=== PATIENT | female | born 1995 | race Caucasian/White ===

== ENCOUNTER 2018-11-14 16:33 | Inpatient (IN) ==
[2018-11-14 17:45] LABS: Basophils # (auto) 0.01 K/uL (0-0.2); Basophils % (auto) 0.1 %; Eosinophils # (auto) 0.05 K/uL (0-0.5); Eosinophils % (auto) 0.6 %; Hematocrit (blood only) 42.8 % (37-47); Hemoglobin 14.9 g/dL (12.0-16.0); Immature Granulocytes # (auto) 0.01 K/uL (0.00-0.02); Immature Granulocytes % (auto) 0.1 %; Lymphocytes # (auto) 1.89 K/uL (1.2-3.4); Mean Corpuscular Hgb Conc 34.8 g/dL (32-36); Mean Corpuscular Volume 92.4 fL (80-100); Monocytes # (auto) 0.63 K/uL (0.11-0.59); Neutrophils # (auto) 5.27 K/uL (1.4-6.5); Neutrophils % (auto) 67.2 %; Platelet Count 305 K/uL (130-400); RDW Coefficient of Variation 12.5 % (11.5-14.5); RDW Standard Deviation 42.2 fL (36.4-46.3); Red Blood Count 4.63 M/uL (4.2-5.4); White Blood Count 7.86 K/uL (4.8-10.8)
[2018-11-14 18:02] LABS: Albumin Level 4.3 gm/dl (3.4-5.0); BUN Creatinine Ratio 12.3 (10-20); Calcium 9.5 mg/dl (8.5-10.1); Creatinine Clr Calc Pharmacy 71.2 ml/min; Est GFR (African American) 87.1; Est GFR (Non-African American) 75.1
[2018-11-14 18:13] LABS: Bilirubin,Total 1.1 mg/dl (0.2-1); Globulin 4.4 gm/dl (2.5-4.0); Total Protein 8.7 gm/dl (6.4-8.2)
[2018-11-14 18:20] LABS: Acetaminophen < 2 ug/ml (10-30); Salicylate < 1.7 mg/dl (2.8-20)
[2018-11-14 18:46] LABS: Appearance Urine Clear (Clear); Blood Urine Negative (Negative); Color Urine Dark Yellow; Glucose Urine UA Negative (Negative); Ketones Urine 2+ (Negative); Leukocyte Esterase Urine Negative (Negative); Nitrite Urine Negative (Negative); Protein Urine Negative (Negative); Urobilinogen Urine Negative (Negative)
[2018-11-14 18:56] LABS: Bilirubin Urine Negative (Negative); Ictotest Urine Negative (Negative)
[2018-11-14 19:15] LABS: Amphetamines+Metham, Urine Neg (Neg); Barbiturates, Urine Neg (Neg); Benzodiazepine, Urine Neg (Neg); Cocaine, Urine Neg (Neg); MDMA (Ecstacy), Urine Neg (Neg); Methadone, Urine Neg (Neg); Opiate, Urine Neg (Neg); Phencyclidine, Urine Neg (Neg)
--- NOTE | 2018-11-14 20:49 | Emergency Department Note ---
Entered by Arsenio Harris acting as a scribe for Kings Mars MD History of Present Illness General Chief complaint: Mental Health Evaluation Stated complaint: MHID Source: patient and RN notes reviewed History of Present Illness Onset (ago): hour(s) (prior to arrival) Location: upper extremity (left wrist) Pain Consistency: + other (episode ) Quality: + other (suicidal ideation ) Associated symptoms: + other (+stress; +feeling guilty; +lightheadedness) The patient is a 23 year old female who presents to the Emergency Room after being brought in by police who were referred to her by a national suicide hotline, per the case checker. According to the case checker, police were informed that she planned to slit her throat. The case checker notes that the patient cut her wrist today, and the case checker also notes that the patient has been stressed recently due to moving here recently and for feeling guilty of cheating on her boyfriend. The patient states she has a history of depression and anxiety since she was 6 years old, and that she has been seeing a counselor off an on since 2006. The patient reports she attempted to hurt herself in May but never "went through with it" like today. She stated she thought her sharp fingernails into her arm in May but did not actually cut herself like she did today. The patient says "she feels trapped". She states that many things have spiraled out of control. She said she is struggling living alone and with moving here recently. She notes that her sister will not talk to her, and her entire family is in [place]. The patient also notes that her boyfriend and his family live in [place]. She feels guilty that she cheated on her boyfriend recently. The patient reports that she does not want to hurt herself at the moment. She denies drinking alcohol, using drugs, or any chance of . The patient notes her tetanus is up to date. The patient also reports of feeling lightheaded due to not eating anything today. She otherwise denies any other physical complaints. Home Medications Home Medications Medication Instructions Recorded Confirmed Type Stress Defy 1 tab PO DAILY 11/14/18 11/14/18 History acetaminophen [Tylenol Extra 500 mg PO DIRECTED PRN 11/14/18 11/14/18 History Strength] cetirizine [Zyrtec] 10 mg PO DAILY PRN 11/14/18 11/14/18 History etonogestrel-ethinyl estradiol 0 vag ring VAGINAL CONTINOUS 11/14/18 11/14/18 History [NuvaRing] fluticasone propionate [Flonase 1 spray INTRANASAL DAILY 11/14/18 11/14/18 History Allergy Relief] multivitamin 1 tab PO DAILY 11/14/18 11/14/18 History Allergies Allergy/AdvReac Type Severity Reaction Status Date / Time cephalexin [From Keflex] Allergy Intermediate CONFUSION, Verified 11/14/18 19:00 NAUSEA, DIZZINESS grass pollen Allergy Intermediate ITCHY Verified 11/14/18 19:00 EYES, SNEEZING, CONGESTION pollen extracts Allergy Intermediate ITCHY Verified 11/14/18 19:00 EYES, SNEEZING, CONGESTION ragweed pollen Allergy Intermediate ITCHY Verified 11/14/18 19:00 EYES, SNEEZING, CONGESTION Past Med/Surg History Medical History Anxiety Depression Family History Other No significant family history Social History Feels Safe at Home: Hesitant to Answer Smoking Status: Never smoker Review of Systems See HPI for pertinent positives & negatives. and A total of 10 systems reviewed and were otherwise negative Physical Exam Vital Signs Vital Signs - 24 hr 11/14/18 16:43 11/14/18 16:51 11/14/18 18:38 Temperature 36.9 C 36.9 C Temperature Source Oral Oral Sepsis Recent Fever Within 48 Hours No Sepsis Action Taken by Nursing No Action Required Pulse Rate 76 76 Pulse Rate [Finger] 71 Respiratory Rate 17 16 16 Blood Pressure 107/57 L 107/59 L Blood Pressure [Left Arm] 110/68 Blood Pressure Mean 73 75 Blood Pressure Mean [Left Arm] 82 Pulse Oximetry 99 99 99 Oxygen Delivery Method Room Air Room Air Room Air Constitutional: Vital signs reviewed. Eyes: Pupils are equal round reactive to light. Conjunctiva are noninjected. ENT: Pharynx is clear without erythema or exudate. Mucous membranes are moist. Neck supple without meningeal signs. Respiratory: Clear to auscultation bilaterally. Breath sounds are equal bilaterally. Cardiovascular: Regular rate and rhythm. No rubs or gallops. GI: Soft, nondistended and nontender. Bowel sounds are present. Musculoskeletal: Very superficial lacerations to volar aspect of left wrist. No bleeding or signs of infection. Integumentary: As above. Neurological: The patient is awake and alert. No focal deficits. Psychiatric: Depressed affect, anxious, not tearful. Course 1700: Past medical records reviewed. The patient was evaluated in room A7. A complete history and physical exam was performed. 1943: The patient is medically cleared. Mental health will further evaluate the patient. Administered Medications Medical Decision Making Differential Diagnosis Differential diagnoses include mood disorder, suicidal ideation, suicide attempt, overdose, drug or alcohol abuse, amongst others. Medical Records Attestation: I reviewed the patient's medical records. I did perform a limited focused review of portions of the patient's old chart on the electronic medical record. The patient has had no recent pertinent visits to this hospital. Home Medications Current Medication List: was personally reviewed by me Laboratory Data Attestation: I reviewed the patient's lab results. Result diagrams: 11/14/18 17:34 11/14/18 17:34 Lab Results 11/14/18 11/14/18 11/14/18 Range/Units 17:34 17:34 17:34 WBC 7.86 (4.8-10.8) K/uL RBC 4.63 (4.2-5.4) M/uL Hgb 14.9 (12.0-16.0) g/dL Hct 42.8 (37-47) % MCV 92.4 (80-100) fL MCH 32.2 (25-34) pg MCHC 34.8 (32-36) g/dL RDW Std Deviation 42.2 (36.4-46.3) fL RDW Coeff of Onel 12.5 (11.5-14.5) % Plt Count 305 (130-400) K/uL MPV 9.0 (7.4-10.4) fL Immature Gran % (Auto) 0.1 % Neut % (Auto) 67.2 % Lymph % (Auto) 24.0 % Boundary % (Auto) 8.0 % Eos % (Auto) 0.6 % Baso % (Auto) 0.1 % Immature Gran # (Auto) 0.01 (0.00-0.02) K/uL Neut # (Auto) 5.27 (1.4-6.5) K/uL Lymph # (Auto) 1.89 (1.2-3.4) K/uL Boundary # (Auto) 0.63 H (0.11-0.59) K/uL Eos # (Auto) 0.05 (0-0.5) K/uL Baso # (Auto) 0.01 (0-0.2) K/uL Sodium 138 (136-145) mmol/L Potassium 4.0 (3.5-5.1) mmol/L Chloride 106 (98-107) mmol/L Carbon Dioxide 25 (21-32) mmol/L Anion Gap 7.0 (3-11) BUN 13 (7-18) mg/dl Creatinine 1.04 (0.6-1.2) mg/dl Est Cr Clr Drug Dosing 71.2 ml/min Est GFR ( Amer) 87.1 Est GFR (Non-Af Amer) 75.1 BUN/Creatinine Ratio 12.3 (10-20) Glucose 85 (70-99) mg/dl Calcium 9.5 (8.5-10.1) mg/dl Total Bilirubin 1.1 H (0.2-1) mg/dl AST 21 (15-37) U/L ALT 23 (12-78) U/L Alkaline Phosphatase 82 (45-117) U/L Total Protein 8.7 H (6.4-8.2) gm/dl Albumin 4.3 (3.4-5.0) gm/dl Globulin 4.4 H (2.5-4.0) gm/dl Albumin/Globulin Ratio 1.0 (0.9-2) TSH 1.840 (0.300-4.500) uIu/ml Urine Color Urine Appearance (Clear) Urine pH (4.5-7.5) Ur Specific Monette (1.000-1.030) Urine Protein (Negative) Urine Glucose (UA) (Negative) Urine Ketones (Negative) Urine Blood (Negative) Urine Nitrite (Negative) Urine Bilirubin (Negative) Urine Urobilinogen (Negative) Ur Leukocyte Esterase (Negative) POC Ur Test (NEG) Salicylates < 1.7 L (2.8-20) mg/dl Urine Opiates Screen (Neg) Ur Methadone, Qual (Neg) Acetaminophen < 2 L (10-30) ug/ml Urine Barbiturates (Neg) Ur Phencyclidine (PCP) (Neg) U Amphetamin/Meth Scrn (Neg) MDMA (Ecstasy) Screen (Neg) U Benzodiazepines Scrn (Neg) Ur Cocaine Metabolite (Neg) U Marijuana (THC) Screen (Neg) Ethyl Alcohol mg/dL (0-3) mg/dl 11/14/18 11/14/18 11/14/18 Range/Units 17:34 18:15 18:15 WBC (4.8-10.8) K/uL RBC (4.2-5.4) M/uL Hgb (12.0-16.0) g/dL Hct (37-47) % MCV (80-100) fL MCH (25-34) pg MCHC (32-36) g/dL RDW Std Deviation (36.4-46.3) fL RDW Coeff of Onel (11.5-14.5) % Plt Count (130-400) K/uL MPV (7.4-10.4) fL Immature Gran % (Auto) % Neut % (Auto) % Lymph % (Auto) % Boundary % (Auto) % Eos % (Auto) % Baso % (Auto) % Immature Gran # (Auto) (0.00-0.02) K/uL Neut # (Auto) (1.4-6.5) K/uL Lymph # (Auto) (1.2-3.4) K/uL Boundary # (Auto) (0.11-0.59) K/uL Eos # (Auto) (0-0.5) K/uL Baso # (Auto) (0-0.2) K/uL Sodium (136-145) mmol/L Potassium (3.5-5.1) mmol/L Chloride (98-107) mmol/L Carbon Dioxide (21-32) mmol/L Anion Gap (3-11) BUN (7-18) mg/dl Creatinine (0.6-1.2) mg/dl Est Cr Clr Drug Dosing ml/min Est GFR ( Amer) Est GFR (Non-Af Amer) BUN/Creatinine Ratio (10-20) Glucose (70-99) mg/dl Calcium (8.5-10.1) mg/dl Total Bilirubin (0.2-1) mg/dl AST (15-37) U/L ALT (12-78) U/L Alkaline Phosphatase (45-117) U/L Total Protein (6.4-8.2) gm/dl Albumin (3.4-5.0) gm/dl Globulin (2.5-4.0) gm/dl Albumin/Globulin Ratio (0.9-2) TSH (0.300-4.500) uIu/ml Urine Color Urine Appearance (Clear) Urine pH (4.5-7.5) Ur Specific Monette (1.000-1.030) Urine Protein (Negative) Urine Glucose (UA) (Negative) Urine Ketones (Negative) Urine Blood (Negative) Urine Nitrite (Negative) Urine Bilirubin (Negative) Urine Urobilinogen (Negative) Ur Leukocyte Esterase (Negative) POC Ur Test NEG (NEG) Salicylates (2.8-20) mg/dl Urine Opiates Screen Neg (Neg) Ur Methadone, Qual Neg (Neg) Acetaminophen (10-30) ug/ml Urine Barbiturates Neg (Neg) Ur Phencyclidine (PCP) Neg (Neg) U Amphetamin/Meth Scrn Neg (Neg) MDMA (Ecstasy) Screen Neg (Neg) U Benzodiazepines Scrn Neg (Neg) Ur Cocaine Metabolite Neg (Neg) U Marijuana (THC) Screen Neg (Neg) Ethyl Alcohol mg/dL < 3.0 (0-3) mg/dl 11/14/18 Range/Units 18:15 WBC (4.8-10.8) K/uL RBC (4.2-5.4) M/uL Hgb (12.0-16.0) g/dL Hct (37-47) % MCV (80-100) fL MCH (25-34) pg MCHC (32-36) g/dL RDW Std Deviation (36.4-46.3) fL RDW Coeff of Onel (11.5-14.5) % Plt Count (130-400) K/uL MPV (7.4-10.4) fL Immature Gran % (Auto) % Neut % (Auto) % Lymph % (Auto) % Boundary % (Auto) % Eos % (Auto) % Baso % (Auto) % Immature Gran # (Auto) (0.00-0.02) K/uL Neut # (Auto) (1.4-6.5) K/uL Lymph # (Auto) (1.2-3.4) K/uL Boundary # (Auto) (0.11-0.59) K/uL Eos # (Auto) (0-0.5) K/uL Baso # (Auto) (0-0.2) K/uL Sodium (136-145) mmol/L Potassium (3.5-5.1) mmol/L Chloride (98-107) mmol/L Carbon Dioxide (21-32) mmol/L Anion Gap (3-11) BUN (7-18) mg/dl Creatinine (0.6-1.2) mg/dl Est Cr Clr Drug Dosing ml/min Est GFR ( Amer) Est GFR (Non-Af Amer) BUN/Creatinine Ratio (10-20) Glucose (70-99) mg/dl Calcium (8.5-10.1) mg/dl Total Bilirubin (0.2-1) mg/dl AST (15-37) U/L ALT (12-78) U/L Alkaline Phosphatase (45-117) U/L Total Protein (6.4-8.2) gm/dl Albumin (3.4-5.0) gm/dl Globulin (2.5-4.0) gm/dl Albumin/Globulin Ratio (0.9-2) TSH (0.300-4.500) uIu/ml Urine Color Dark Yellow Urine Appearance Clear (Clear) Urine pH 5.0 (4.5-7.5) Ur Specific Monette 1.030 (1.000-1.030) Urine Protein Negative (Negative) Urine Glucose (UA) Negative (Negative) Urine Ketones 2+ H (Negative) Urine Blood Negative (Negative) Urine Nitrite Negative (Negative) Urine Bilirubin Negative (Negative) Urine Urobilinogen Negative (Negative) Ur Leukocyte Esterase Negative (Negative) POC Ur Test (NEG) Salicylates (2.8-20) mg/dl Urine Opiates Screen (Neg) Ur Methadone, Qual (Neg) Acetaminophen (10-30) ug/ml Urine Barbiturates (Neg) Ur Phencyclidine (PCP) (Neg) U Amphetamin/Meth Scrn (Neg) MDMA (Ecstasy) Screen (Neg) U Benzodiazepines Scrn (Neg) Ur Cocaine Metabolite (Neg) U Marijuana (THC) Screen (Neg) Ethyl Alcohol mg/dL (0-3) mg/dl Blood Pressure Blood Pressure Findings: Normal blood pressure MDM Narrative I did evaluate the patient as noted above. The patient is presenting with suicidal ideation and she states she has a plan to cut her throat with a knife. She did cut her left wrist but has very superficial lacerations that do not require any repair. She did speak to a national suicide hotline who then called the local police who brought her in for evaluation. I did order a urine analysis. There is no evidence of infection. She is not . I did order and review the patient's blood work as noted in the electronic medical record. Labs are unremarkable. CBC is normal. Electrolytes are unremarkable. I did medically clear the patient. The patient was evaluated by the mental health case checker and referred to [facility] she was evaluated by [facility] and accepted for voluntary inpatient psychiatric care. Impression & Plan Mood disorder, Suicidal ideation, Self-cutting of wrist Discharge Plan Visit Data Chief Complaint: Mental Health Evaluation Stated Complaint: MHID ED Provider: Kings Mars Discharge Problem: Mood disorder, Suicidal ideation, Self-cutting of wrist Forms Stand Alone Forms: My [facility] Prescriptions Prescriptions: No Action multivitamin Tablet 1 tab PO DAILY RF: 0 cetirizine [Zyrtec] 10 mg Tablet 10 mg PO DAILY PRN (Reason: Allergy Symptoms) RF: 0 acetaminophen [Tylenol Extra Strength] 500 mg Tablet 500 mg PO DIRECTED PRN (Reason: Pain) RF: 0 fluticasone propionate [Flonase Allergy Relief] 50 mcg/actuation Maury,S [employer] 1 spray INTRANASAL DAILY RF: 0 NuvaRing 0.12-0.015 mg/24 hr Ring VAGINAL CONTINOUS RF: 0 Stress Defy 1 tab PO DAILY RF: 0 The scribe's documentation has been prepared under my direction and personally reviewed by me in its entirety. I confirm that the note above accurately reflects all work, treatment, procedures, and medical decision making performed by me.
[2018-11-14] MEDS ORDERED: SODIUM CHLORIDE 0.65% NA SOLN 45 ML (OCEAN) PRN (21:35)
[2018-11-14] MEDS ORDERED: ALUMINUM/MAGNESIUM SUSP 30 ML UDC PO PRN (21:35)
[2018-11-14] MEDS ORDERED: MAGNESIUM HYDROXIDE SUSP 30 ML UDC PO PRN (21:35)
[2018-11-14] MEDS ORDERED: ACETAMINOPHEN 325 MG TAB PO PRN (21:35)
[2018-11-14] MEDS ORDERED: BISMUTH SUBSALICYLATE PER ML OMNICELL CHARGE PO PRN (21:35)
[2018-11-14] MEDS ORDERED: CETIRIZINE HCL 10 MG TABLET PO PRN (22:18)
[2018-11-15] MEDS: FLUTICASONE PROPIONATE NA SPR 16 GM BTL SCH (08:43)
[2018-11-15] MEDS: MULTIVITAMIN TAB PO SCH (08:43)
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
[2018-11-15] MEDS ORDERED: BACITRACIN OINT 15 GM TUBE EXT PRN (15:53)
[2018-11-16] MEDS: MULTIVITAMIN TAB PO SCH (11:01)
[2018-11-16] MEDS: FLUTICASONE PROPIONATE NA SPR 16 GM BTL SCH (11:01)
--- NOTE | 2018-11-16 12:31 | Psychiatric Progress Note ---
Date of Service November 16, 2018 Impression / Recommendations Impression 23-year-old female admitted voluntarily for inpatient psychiatric treatment after presenting to the ED by police. Pt had reportedly called the National Suicide Prevention hotline, after an episode of self-injurious behavior by cutting her left forearm. Hotline attendant recommended dispatch be called, and patient receive a mental health evaluation in the emergency department. After police arrived at her apartment, patient was agreeable to an evaluation, and was ultimately admitted voluntarily for inpatient psychiatric treatment to address her increased stress and acute suicidality. Patient verbalizes several significant changes over the last month, including a change in jobs, moving to a new apartment, living independently, her relationship changing to a long distance status, and regret and guilt associated with seeking support from a new male friend. Patient believes that the combination of these significant changes created a situation in which she was no longer able to utilize her coping strate gies to manage her stress level. Patient denies suicidality at this time, but remains highly vulnerable and is unable to contract for safety outside of the hospital setting at this time. Pt continues to decline medication trials to target her anxiety, but has been participating actively in group and recreational programming, and has also been observed to be doing a significant amount of individual work on developing appropriate coping strategies. It is recommended that a period of consistency in resolution of suicidal ideation and improved anxiety be seen prior to determining the patient is stable for discharge. Given the events leading to her presentation, she remains at high risk of decompensation and harm to self if she is discharged prematurely. (1) Suicidal ideation: 11/15 - Admitted to a locked inpatient behavioral health unit, on q15 minute safety checks - Encourage medication initiation/adjustments as indicated - Encourage participation in group and recreational therapies - Gather collateral information from outpatient providers - Suggest family meeting to involve outpatient supports in safety planning - Arrange appropriate aftercare 11/16 - Denies ongoing SI - Focusing on healthy coping strategies, working to adjust them to her new living situation (2) Generalized anxiety disorder: 11/15 - Patient reports diagnosis of generalized anxiety disorder per previous therapists. Differential in this situation also includes acute stress reaction, adjustment disorder, major depressive disorder, dysthymic disorder, or other mood/anxiety disorder. - Pt is able to verbalize many coping strategies, but states she had difficulty (due to the high amount of recent stress) utilizing them appropriately - Coordinate care with current outpatient therapist - Encourage involvement of outpatient support in a family meeting with social work to discuss discharge and safety planning - Encourage participation in group and recreational therapies - Assist patient in development of healthy and effective coping strategies 11/16 - Continue as above, patient continues to decline psychotropic medication - Working on healthy coping strategies - Participated in family meeting this morning involving mother and a local male support (3) Self-cutting of wrist: 11/15 - Multiple superficial lacerations to patient's left forearm, inspected, no obvious bleeding, drainage, or infection. Lacerations appear to be closed and in initial stages of healing. - Will have bacitracin available for use prn skin irritation/infection Inventory Assets Strengths: willingness for treatment, intelligence, already established with therapist Needs: Assistance coping with recent life-changes, support with coping strategies available in new living situation, process ways to request and obtain support during periods of long-distance Risk Factors Assessment Male: No : Yes Do You Have Access To A Gun?: No Health Problems: No Mental Health Diagnoses: Yes Substance Use Disorders: No Previous Attempt: No Family History of Suicide: No Previous Psychiatric Hospitalization: No Hopelessness: No Smoker: No Protective Factors Assessment Confucianist Beliefs: No : No Responsible for Young Children: No Employed: Yes ([employer]) Stable Relationships: Yes Supportive Family: Yes Interval History Identifying Information CLIVE AVENDANO is a 23-year-old F who currently lives in [place] alone, having recently moved from [place]. Pt has a history of anxiety and suspected PTSD, and was admitted on 11/14/18 21:35 on a 201 voluntary commitment for worsening anxiety, self-inflicted lacerations to her left forearm, and suicidal ideation - verbalized to the National Suicide Prevention hotline. Pt was willingly brought to the ED by police, and a 302 petitioning statement was completed by a mounted police officer on scene. Chief Complaint "I talked to someone last night, one of the counselors. It really got me thinking." Review of Systems Notes Constitutional: Reports mild fatigue, as did not sleep well last evening Cardiovascular: denied Respiratory: denied Gastrointestinal: denied Neurological: denied Psychiatric: denies symptoms other than stated above Total of at least 10 systems reviewed, pertinent positives as above and in HPI. Sleep Information Total Hours of Sleep: 3 Sleep Comments: patient woke at 0400 and was unable to fall back to sleep. Meal Information Percent Meal Consumed - Breakfast: 0 Percent Meal Consumed - Lunch: 75 Percent Meal Consumed - Dinner: 25 Subjective Subjective Patient was seen & assessed and interval progress reviewed with Nursing and social work. Staff reports the patient received a limited amount of sleep last evening, complaining of her roommate snoring. Patient received visits from her mother and a local mental support last evening, which reportedly went well. She is scheduled for a family meeting with both of them this morning. Staff reports the patient has displayed a bright affect and has been attending groups regularly. Patient was seen today to assess progress since admission. She states she feels she has making improvements, and was happy to speak with her mother and a male friend this morning. She states the meeting "went great", reporting they discussed her relationship with her father, "relationship stuff", and coping strategies. Patient reports that she has had a chance to think while on the unit, and is considering what steps are necessary to prioritize herself and her self-care in life. Patient states "what if I just a single? I really never been alone for more than a month in the last 7 years. I think I need to focus on me." Patient verbalizes that she is not planning to make any rash decisions regarding her current long distance relationship, but does intend to explore if continuing this relationship is in her best interest. Patient states these thoughts are "scary, but also hopeful." Patient denies suicidal ideation at this time, and continues to use journaling as her primary coping strategy h ere on the unit. Patient is noticing improvement, denying other needs or concerns at this time. Physical Exam Psychiatric Orientation: alert, oriented x 3 and cooperative (And pleasant) Apperance: appropriately dressed (Casually, in T-shirt and sweat pants) and appropriately groomed Eye Contact: good eye contact Motor Behavior: steady gait and station and no abnormal motor movements Speech: normal rate/rhythm/volume of speech Affect: euthymic affect Mood: + anxious mood (Mildly); no depressed mood Thought Process: goal directed thought process, linear/logical thought process and clear/coherent thought process Thought Content: reality based without delusions Suicidal Thoughts: denies suicidal thoughts, denies suicidal plan and denies suicidal intent Homicidal Thoughts: denies homicidal thoughts Hallucinations: no auditory hallucinations and no visual hallucinations Cognition: recent memory grossly intact, remote memory grossly intact, attention grossly intact and language grossly intact Estimated Intelligence: consistent with education level Insight: + fair insight Judgement: + fair judgement Vital Signs (Past 24 Hours) Last Vital Signs Temp 36.2 C L 11/16/18 06:00 Pulse 68 11/16/18 06:37 Resp 16 11/16/18 06:00 BP 113/67 11/16/18 06:37 Pulse Ox 97 11/14/18 21:58 Results & Data Current Inpatient Medications Current Inpatient Medications: Current Inpatient Medications Acetaminophen (Tylenol) 650 mg PO Q4H PRN PRN Reason: Headache or Minor Fever Stop: 12/14/18 21:34 Last Admin: 11/14/18 23:15 Dose: 650 mg Documented by: Al Hydrox/Mg Hydrox/Simethicone (Maalox) 30 ml PO Q4H PRN PRN Reason: GI Upset Stop: 12/14/18 21:34 Bacitracin (Bacitracin) 1 appln EXT TID PRN PRN Reason: skin irritation/infection Stop: 12/15/18 15:52 Bismuth Subsalicylate (Kaopectate) 15 ml PO PRN PRN PRN Reason: Loose Stool Stop: 12/14/18 21:34 Cetirizine HCl (Zyrtec) 10 mg PO DAILY PRN PRN Reason: Allergy Symptoms Stop: 12/14/18 22:17 Fluticasone Propionate (Flonase) 1 sprays NA DAILY NIGHAT Stop: 12/15/18 08:59 Last Admin: 11/16/18 11:01 Dose: 1 sprays Documented by: Hydroxyzine HCl (Vistaril) 50 mg PO HSZ PRN PRN Reason: Insomnia Stop: 12/14/18 21:34 Hydroxyzine HCl (Vistaril) 25 mg PO Q4H PRN PRN Reason: Anxiety Stop: 12/14/18 21:34 Magnesium Hydroxide (Milk Of Magnesia) 30 ml PO DAILY PRN PRN Reason: Heartburn Stop: 12/14/18 21:34 Multivitamins (Multivitamin Tab) 1 tab PO QAM NIGHAT Stop: 12/15/18 08:59 Last Admin: 11/16/18 11:01 Dose: 1 tab Documented by: Sodium Chloride ([place] Nasal) 1 - 2 sprays NA PRN PRN PRN Reason: Nasal Dryness/Congestion Stop: 12/14/18 21:34 Mental Health & Subst Abuse Tx Therapist Name of Therapist: [facility] Date of Therapist Appointment: 11/15/18 Canal Driver Name of Canal Driver: None CPT Code CPT Code 31808
[2018-11-17] MEDS: MULTIVITAMIN TAB PO SCH (09:06)
[2018-11-17] MEDS: FLUTICASONE PROPIONATE NA SPR 16 GM BTL SCH (09:06)
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
== END 2018-11-17 14:18 | disposition home or self-care (01) | DRG 880 ==
LOC: ED 16:33 → 3S 21:35